=== PATIENT | male | born 1980 | race Caucasian/White ===

== ENCOUNTER → 2018-05-08 | Outpatient (CLI) | payer BC ==
--- NOTE | 2018-05-09 10:07 | RADIOLOGY REPORT (SQ) ---
EXAM DESCRIPTION: MRI LUMBAR SPINE WITHOUT COMPLETED DATE/TIME: 05/08/2018 2:38 pm REASON FOR STUDY: LUMBAR REGION RADICULOPATHY M54.16 RADICULOPATHY, LUMBAR REGION COMPARISON: None. TECHNIQUE: Sagittal and Axial imaging includes T1, T2, STIR and gradient echo sequences. Coronal T2/ HASTE imaging. LIMITATIONS: None. FINDINGS: VISUALIZED UPPER ABDOMEN: There is a 3 cm cortical defect in the right mid-pole kidney, qu estion prior surgery. This is best shown on coronal image 14 SEGMENTATION: No transitional anatomy. The lowest well-developed disc space is labeled L5-S1. ALIGNMENT: Anatomic. VERTEBRAE: Chronic 25% upper endplate compression at L1. BONE MARROW: Normal. No marrow replacement or reactive changes. DISC SIGNAL: Disc space loss of height at T10-11 through T12-L1. POSTERIOR ELEMENTS: Generally intact. No pars defect evident. HARDWARE: None in the spine. CORD AND CONUS: Normal in size and signal intensity. Conus at the L1-2 level. SOFT TISSUES: No aortic aneurysm seen. No bulky retroperitoneal adenopathy or mass. No paraspinal mas s or fluid. T10-11: At the upper edge of the field of view. Moderate bilateral facet hypertrophy. Borderline c entral canal narrowing, mild bilateral foraminal narrowing. T11-12: At the upper edge of the field of view. Broad diffuse posterior bulge and bony spurring wit h moderate bilateral facet and ligament hypertrophy causes mild central canal stenosis and mild bilat eral foraminal narrowing. T12-L1: Mild bilateral facet hypertrophy. No central or foraminal encroachment. L1-L2: Mild bilateral facet hypertrophy. No central or foraminal encroachment. L2-L3: Mild bilateral facet hypertrophy. No central or foraminal encroachment. L3-L4: Mild bilateral facet hypertrophy. No central stenosis. Mild bilateral inferior foraminal jenny rowing without exiting L3 nerve root impingement. L4-L5: Mild diffuse disc bulge and mild bilateral facet and ligament hypertrophy. No central stenosi s. Mild bilateral inferior foraminal narrowing. L5-S1: Fatty reactive change along the bilateral L5 pars without spondylolysis. Bilateral facet arth ropathy. No central or foraminal encroachment. SACRUM: Visualized upper sacrum intact. OTHER: No other significant findings. IMPRESSION: Defect in the right mid-pole kidney, question prior surgery. Chronic L1 upper endplate compression deformity Multilevel facet hypertrophy TECHNICAL DOCUMENTATION: JOB ID: [id number] [employer]- All Rights Reserved Reading location - IP/workstation name: [email or web address]
== END ==
LOC: RAD 13:51
PROVIDERS: ATTEND Internal Medicine
DX: M54.16 Radiculopathy, lumbar region (principal)
CPT/HCPCS: 72148

== ENCOUNTER → 2018-05-14 | Outpatient (CLI) | payer BC ==
[2018-05-14 08:42] LABS: MEAN CORPUSCULAR VOLUME 84 fl (80-97)
[2018-05-14 08:58] LABS: ABSOLUTE BASOPHILS # (AUTO) 0.1 10^3/uL (0.0-0.2); ABSOLUTE EOSINOPHILS # (AUTO) 0.3 10^3/uL (0.0-0.6); ABSOLUTE LYMPHOCYTES (AUTO) 2.3 10^3/uL (0.5-4.7); ABSOLUTE MONOCYTES (AUTO) 0.6 10^3/uL (0.1-1.4); ABSOLUTE NEUT (AUTO) 4.8 10^3/uL (1.7-8.2); BASOPHILS % (AUTO) 0.7 % (0-2); EOSINOPHILS % (AUTO) 3.1 % (0-6); HEMATOCRIT 41.9 % (37.9-51.0); HEMOGLOBIN 15.1 g/dL (13.5-17.0); LYMPHOCYTES % (AUTO) 28.7 % (13-45); MEAN CORPUSCULAR HEMOGLOBIN 30.2 pg (27.0-33.4); MEAN CORPUSCULAR HGB CONC 35.9 g/dL (32.0-36.0); MONOCYTES % (AUTO) 7.9 % (3-13); PLATELET COUNT 211 10^3/uL (150-450); RED BLOOD COUNT 4.99 10^6/uL (4.35-5.55); RED CELL DISTRIBUTION WIDTH 12.8 % (11.5-14.0); SEGMENTED NEUTROPHILS % (AUTO) 59.6 % (42-78); TOTAL CELLS COUNTED % (AUTO) 100 %
[2018-05-14 09:07] LABS: ALANINE AMINOTRANSFERASE 80 U/L (21-72); ALBUMIN 4.1 g/dL (3.5-5.0); ALKALINE PHOSPHATASE 66 U/L (38-126); ANION GAP 10 (5-19); ASPARTATE AMINO TRANSFERASE 44 U/L (17-59); BILIRUBIN,DIRECT 0.3 mg/dL (0.0-0.4); BILIRUBIN,TOTAL 0.7 mg/dL (0.2-1.3); BLOOD UREA NITROGEN 17 mg/dL (7-20); CALCIUM 9.6 mg/dL (8.4-10.2); CARBON DIOXIDE 26 mmol/L (22-30); CHLORIDE 104 mmol/L (98-107); CHOLESTEROL 194.62 mg/dL (0-200); GLUCOSE 187 mg/dL (75-110); POTASSIUM 4.5 mmol/L (3.6-5.0); SODIUM 139.8 mmol/L (137-145); TOTAL PROTEIN 6.9 g/dL (6.3-8.2); TRIGLYCERIDES 134 mg/dL (<150)
[2018-05-14 09:18] LABS: DIRECT LDL 140 mg/dL (<100)
[2018-05-15 11:37] LABS: CREATININE URINE 167.1 mg/dL (Not Estab.); MICROALBUMIN URINE 4.1 ug/mL (Not Estab.)
== END ==
LOC: OD 07:41
PROVIDERS: ATTEND Internal Medicine
DX: D64.9 Anemia, unspecified (principal); E78.5 Hyperlipidemia, unspecified; E11.29 Type 2 diabetes mellitus with other diabetic kidney complication; E03.9 Hypothyroidism, unspecified
CPT/HCPCS: 36415; 80053; 80061; 82043; 82570; 83036; 84443; 85025